=== PATIENT | male | born 1955 | race Caucasian/White ===

== ENCOUNTER 2019-03-28 17:52 | Outpatient (REF) | payer BC, SELFPAY ==
[2019-03-28 21:58] LABS: C-Reactive Protein 0.15 mg/dL (0.0-0.3)
[2019-03-28 23:02] LABS: ESR 4 MM/HR (1-20)
[2019-03-30 10:58] LABS: Lyme Ab w Rflx to Lyme Confirm Negative
== END 2019-03-28 18:12 ==
LOC: NCHCN 17:52
PROVIDERS: PCP Physician Assistant Medical; Visit Provider Nurse Practitioner Family
DX: M25.50 Pain in unspecified joint (principal)
CPT/HCPCS: 85652; 86140; 86618

== ENCOUNTER 2019-06-28 20:02 | Outpatient (REF) | payer BC, SELFPAY ==
[2019-06-28 20:42] LABS: Uric Acid 4.5 mg/dL (3.5-7.2)
== END 2019-06-28 20:22 ==
LOC: NCHCN 20:02
PROVIDERS: PCP Physician Assistant Medical; Visit Provider Nurse Practitioner Family
DX: M25.562 Pain in left knee (principal)
CPT/HCPCS: 84550

== ENCOUNTER 2020-04-24 08:57 | Outpatient (REF) | payer SELFPAY ==
[2020-04-24 20:45] LABS: Anion Gap 12.2 mmol/L (3-11); BUN 11 mg/dL (7-18); CO2 25.8 mmol/L (21.0-32.0); CREATININE 0.98 mg/dL (0.70-1.30); Calcium 9.3 mg/dL (8.5-10.1); Calculated LDL 143 mg/dL (<100); Chloride 100 mmol/L (98-107); Cholesterol 224 mg/dL (<200); Glucose 108 mg/dL (74-106); HDL Cholesterol 46 mg/dL (40-60); Potassium 4.6 mmol/L (3.5-5.1); Sodium 138 mmol/L (136-145); Triglyceride 176 mg/dL (<150)
== END 2020-04-24 09:17 ==
LOC: NCHCN 08:57
PROVIDERS: PCP Nurse Practitioner Family; Visit Provider Nurse Practitioner Family
DX: K21.9 Gastro-esophageal reflux disease without esophagitis (principal); Z13.1 Encounter for screening for diabetes mellitus; Z13.220 Encounter for screening for lipoid disorders
CPT/HCPCS: 80048; 80061

== ENCOUNTER 2020-06-17 11:12 | Day surgery (SDC) | payer OTHER, SELFPAY ==
--- NOTE | 2020-06-17 07:04 | W.COLOREPORT ---
Date of service: 06/17/20 Time of Service: 12:24 Colonoscopy Report Date of procedure: 06/17/20 Pre-op diagnosis general: Hx of polyps Post-op diagnosis procedure note: same (polyps and hernández-diverticulosis) Procedure: Colonoscopy with polypectomy Surgeon: Marcelle Elizabeth Anesthesia proc note operative: other (General/ ASA 2/yanni Rea, CHRISTIANNE) Estimated blood loss (mL): 3 Pathology: other (Rectal polyps) Complications: None Disposition: same day Indications: The patient is here for Colonoscopy pre-op. His last screening was in 2014 and was Tubular adenoma. He has no family history of colon cancer. He has not had any bowel habit changes. -Discussed colonoscopy bowel prep as well as the procedure. Discussed possible complications of the procedure to include bleeding, pain, perforation, missed small lesion/polyp, sore throat, aspiration and adverse reaction to the medications. Questions were answered to patient?s satisfaction. No guarantees were implied or given. Prep: Miralax/Dulcolax Procedure Start Time: 12:24 Procedure End Time: 12:56 Retraction Time: 17 minutes Findings: 2 small polyps Severe hernández-diverticulosis Procedure Description: After informed consent was obtained the patient was taken to the procedure room and placed in a left decubitous position. Monitors were applied and a time out was done. The patients name, date of , procedure, allergies to medications and metal in their body was reviewed. The patient was then sedated. Once sedated and comfortable a rectal exam was done. External exam was normal. Internal exam revealed a normal sphincter tone and no palpable masses. The prostate felt smooth. The scope was then introduced and retro-flexed. No internal hemorrhoids were identified. The scope was then advanced to the cecum with some difficulty due to severe diverticulosis of the entire large bowel. The ileocecal valve and appendiceal orifice were identified. The prep was adequate. The scope was then slowly retracted over 12 minutes back into the rectum. Polyps were removed with cold forceps in the rectum. There was severe hernández-diverticulosis. The scope was removed and the patient was woken up and taken back to Same day surgery in stable condition. The patient tolerated the procedure well and there were no immediate complications. Follow up: The patient should follow up in 5 years unless they develop changes in bowel habits or other new gastrointestinal complaints.
--- NOTE | 2020-06-17 07:05 | W.PM.DSUDISC ---
Discharge Plan Disposition Patient Disposition: HOME Condition: Good Discharge Details Reason For Visit: Hx of polyps Attending Provider: Marcelle Elizabeth Primary Care Provider: Carolyn Broussard Home Meds and New Rx's Prescriptions: Continued Fish Oil 1 EACH capsule 1,000 mg PO DAILY RF: 0 psyllium husk (bulk) 1 GM powder 1 gm Miscellaneous DAILY RF: 0 Discontinued polyethylene glycol 3350 17 gram/dose powder 238 g PO ONCE Qty: 238 RF: 0 bisacodyl [Dulcolax (bisacodyl)] 5 mg tablet,delayed release (DR/EC) 5 mg PO ONCE Qty: 4 RF: 0 Discharge Instructions Instructions: Diverticulosis (DC) Additional Instructions: Findings: Severe Diverticulosis and 2 small polyps Follow up: 5 years Please call if you develop: fevers >101.5 Nausea or Vomiting Abdominal pain that is not transient DAY SURGERY UNIT POST ENDOSCOPY INSTRUCTIONS 1. Because there will be medication in your system for the next 24 hours, you may feel a little sleepy. Your coordination will be affected. Therefore: a. Do not drive or operate dangerous equipment for 24 hours. b. Do not drink alcohol beverages for 24 hours (not even beer). c. Plan to go home and rest for the day. 2. Generally there are no restrictions on your activity after a day or so has gone by, but you may feel a bit fatigued for a few days. 3 After you arrive home you may have a light meal and return to a normal diet as you can tolerate it without feeling sick to your stomach. 4. After surgery, you may feel pain or discomfort. This should be only transient, but if it persists please contact your doctor. 5. If there are any questions regarding the findings of your procedure, please feel free to contact your doctor. 6. If you are unable to contact your doctor with a problem, contact the hospital at [phone]. 7. Continue all your regular medications unless directed otherwise. I understand the above instructions and have no questions. Signature of Patient or Responsible Adult Escort Date/Time Name of Responsible Adult Escort Signature of Nurse Date/Timen Activity:: Activity as Tolerated Diet:: High Fiber diet Discharge Orders Discharge Orders: Discharge Order (Routine); Ordered 06/17/20 Ordered By: Marcelle Elizabeth
[2020-06-17 11:15] VITALS: BP 148/89; PULSE 85; RESP 18; TEMP 35.9; O2SAT 95
[2020-06-17] MEDS: Lactated Ringers 1,000 ML 80 ML IV (11:45)
--- NOTE | 2020-06-17 12:28 | BOWEL_PTH ---
PATIENT: Vladimir Flores LOC: [facility] U#:[id number] AGE/SX: 64/M ROOM: RE06/17/[address]: Marcelle Elizabeth MD : 1955 BED: DIS: 06/17/2020 SPEC #: [id number] RECD: 06/17/20 14:08 STATUS: MARISSA REQ #: [id number] NICHOLE: 06/17/20 12:[address]: Marcelle Elizabeth DEPT: Surgical Specimen RECD BY: Nicole Lincoln ENTERED: 06/17/20 14:11 SP TYPE: Bowel OTHR DR: Carolyn Broussard Tissues: 1 - BIOPSY BOWEL Procedures: GROSS AND MICRO LEVEL 4 Comments: [id number]
[2020-06-17] MEDS: Ondansetron 4 MG/2 ML VIAL (13:15)
[2020-06-17 13:45] VITALS: BP 142/79; PULSE 72; RESP 17; TEMP 36.1; O2SAT 97
[2020-06-17] MEDS: Hyoscyamine 0.125 MG SL/ORAL/CHEW (14:01)
== END 2020-06-17 14:43 | disposition home or self-care (01) ==
LOC: SUR 11:12
PROVIDERS: PCP Nurse Practitioner Family; Visit Provider Surgery
PROC: 0DJD8ZZ Inspection of Lower Intestinal Tract, Via Natural or Artificial Opening Endoscopic (ICD-10-PCS; CPT 45378; principal; 2020-06-17 11:15)
DX: Z12.11 Encounter for screening for malignant neoplasm of colon (principal); Z86.010 Personal history of colon polyps; K62.1 Rectal polyp; K57.30 Diverticulosis of large intestine without perforation or abscess without bleeding
CPT/HCPCS: 45380; 88305; J2001; J2405; J3490

== ENCOUNTER 2021-03-26 08:47 | Outpatient (REF) | payer OTHER, SELFPAY ==
[2021-03-26 13:59] LABS: Calculated LDL 123 mg/dL (<100); Cholesterol 201 mg/dL (<200); Glucose 102 mg/dL (74-106); HDL Cholesterol 41 mg/dL (40-60); Triglyceride 185 mg/dL (<150)
== END 2021-03-26 08:48 | disposition home or self-care (01) ==
LOC: NCHCN 08:47
PROVIDERS: PCP Nurse Practitioner Family; Visit Provider Nurse Practitioner Family
DX: R73.9 Hyperglycemia, unspecified (principal); E78.5 Hyperlipidemia, unspecified
CPT/HCPCS: 80061; 82947

== ENCOUNTER 2022-01-13 14:34 | Outpatient (REF) | payer OTHER, SELFPAY ==
[2022-01-13 14:08] LABS: Calculated LDL 100 mg/dL (<100); Cholesterol 184 mg/dL (<200); HDL Cholesterol 42 mg/dL (40-60); Triglyceride 212 mg/dL (<150)
== END 2022-01-13 14:35 | disposition home or self-care (01) ==
LOC: NCHCN 14:34
PROVIDERS: PCP Nurse Practitioner Family; Visit Provider Nurse Practitioner Family
DX: E78.5 Hyperlipidemia, unspecified (principal)
CPT/HCPCS: 80061

== ENCOUNTER 2022-02-10 18:42 | Outpatient (REF) | payer OTHER, SELFPAY | END 2022-02-10 18:43 | disposition home or self-care (01) | LOC: NCHCN 18:42 | PROVIDERS: PCP Nurse Practitioner Family; Visit Provider Nurse Practitioner Family | DX: R35.0 Frequency of micturition (principal) | CPT/HCPCS: 87086 ==

== ENCOUNTER 2022-12-01 15:44 | Outpatient (REF) | payer MEDICARE, SELFPAY ==
[2022-12-01 16:19] LABS: Hemoglobin A1C 5.5 % (<5.7)
[2022-12-01 16:22] LABS: Anion Gap 8.9 mmol/L (3-11); BUN 12 mg/dL (7-18); CO2 27.1 mmol/L (21.0-32.0); CREATININE 0.9 mg/dL (0.70-1.30); Calcium 9.4 mg/dL (8.5-10.1); Calculated LDL 143 mg/dL (<100); Chloride 101 mmol/L (98-107); Cholesterol 219 mg/dL (<200); Estimated GFR 94.78 (mL/min/1.73m2); Glucose 112 mg/dL (74-106); HDL Cholesterol 54 mg/dL (40-60); Potassium 4.6 mmol/L (3.5-5.1); Sodium 137 mmol/L (136-145); TSH (W/Ref FT4) 1.66 uIU/mL (0.36-3.74); Triglyceride 114 mg/dL (<150)
[2022-12-10 11:01] LABS: Testosterone, Free 11.1 ng/dL (3.47-13.0); Testosterone, Total 569 ng/dL (240-950)
== END 2022-12-01 15:45 | disposition home or self-care (01) ==
LOC: NCHCN 15:44
PROVIDERS: PCP Nurse Practitioner Family; Visit Provider Nurse Practitioner Family
DX: F52.21 Male erectile disorder (principal); E78.5 Hyperlipidemia, unspecified; R73.9 Hyperglycemia, unspecified
CPT/HCPCS: 80048; 80061; 84402; 84403; 83036; 84443

== ENCOUNTER 2023-02-15 12:27 | Outpatient (REF) | payer MEDICARE, SELFPAY ==
[2023-02-15 17:29] LABS: ALT 49 U/L (16-63); AST 35 U/L (15-37); Cholesterol 171 mg/dL (<200); HDL Cholesterol 42 mg/dL (40-60); Triglyceride 409 mg/dL (<150)
[2023-02-15 18:49] LABS: LDL CHOLESTEROL 77 mg/dL (<100)
[2023-02-15 20:07] LABS: Creatine Kinase 321 U/L (39-308)
== END 2023-02-15 12:28 | disposition home or self-care (01) ==
LOC: NCHCN 12:27
PROVIDERS: PCP Nurse Practitioner Family; Visit Provider Nurse Practitioner Family
DX: E78.5 Hyperlipidemia, unspecified (principal); F52.21 Male erectile disorder
CPT/HCPCS: 80061; 82550; 83721; 84450; 84460

== ENCOUNTER 2023-04-29 09:30 | Outpatient (REF) | payer MEDICARE, SELFPAY ==
[2023-04-29 16:40] LABS: ALT 57 U/L (16-63); AST 36 U/L (15-37); Calculated LDL 86 mg/dL (<100); Cholesterol 153 mg/dL (<200); HDL Cholesterol 49 mg/dL (40-60); Triglyceride 92 mg/dL (<150)
[2023-04-29 17:28] LABS: Creatine Kinase 160 U/L (39-308)
== END 2023-04-29 09:31 | disposition home or self-care (01) ==
LOC: NCHCN 09:30
PROVIDERS: PCP Nurse Practitioner Family; Visit Provider Nurse Practitioner Family
DX: E78.5 Hyperlipidemia, unspecified (principal)
CPT/HCPCS: 80061; 82550; 84450; 84460

== ENCOUNTER 2025-02-02 22:20 | Outpatient (REF) | payer MEDICARE, SELFPAY ==
[2025-02-02 19:13] LABS: ALT 56 U/L (16-63); AST 40 U/L (15-37); Albumin 4.1 g/dL (3.4-5.0); Alkaline Phosphatase 99 U/L (46-116); Anion Gap 9.6 mmol/L (3-11); BUN 15 mg/dL (7-18); Bilirubin, Total 0.4 mg/dL (0.2-1.0); CO2 25.4 mmol/L (21.0-32.0); CREATININE 1.1 mg/dL (0.70-1.30); Calcium 9.3 mg/dL (8.5-10.1); Chloride 104 mmol/L (98-107); Estimated GFR 73.58 (mL/min/1.73m2); Glucose 125 mg/dL (74-106); Potassium 4.3 mmol/L (3.5-5.1); Sodium 139 mmol/L (136-145); Total Protein 7.6 g/dL (6.4-8.2)
== END 2025-02-02 22:21 | disposition home or self-care (01) ==
LOC: NCHCN 22:20
PROVIDERS: PCP Nurse Practitioner Family; Visit Provider Nurse Practitioner Family
DX: E78.5 Hyperlipidemia, unspecified (principal)
CPT/HCPCS: 80053

== ENCOUNTER 2025-03-16 01:50 | Emergency (ER) | payer MEDICARE, SELFPAY ==
[2025-03-16] VITALS (14 sets, daily range): BP systolic 136–159; BP diastolic 82–99; PULSE 79–98; RESP 15–22; TEMP 36.3; O2SAT 94–98
--- NOTE | 2025-03-16 01:57 | ED.GENADUL_ITS ---
Discharge Plan Disposition Patient Disposition: Home Condition: Good Discharge Details Clinical Impression: Nausea, vomiting and diarrhea Primary Care Provider: Carolyn Broussard ED Provider: Glenn Bynum Meds and New Rx's Prescriptions: New ondansetron 4 mg tablet,disintegrating 4 mg PO Q8H PRNQty: 10 0RF Continued rosuvastatin [Crestor] 5 mg tablet 5 mg PO DAILY omega 2-ave-wdp-fish oil [Fish Oil] 300-1,000 mg capsule 1 cap PO DAILY indomethacin 50 mg capsule 50 mg PO TID Rx Instructions: administer with food or milk Fish Oil 1 EACH capsule 1,000 mg PO DAILY psyllium husk (bulk) 1 GM powder 1 gm Miscellaneous DAILY Held amoxicillin-pot clavulanate 875-125 mg tablet 1 tab PO BID Hold Instructions: Discuss with PCP Discharge Instructions Instructions: Nausea and Vomiting, Adult ED Additional Instructions: You were seen in the ED for vomiting and diarrhea. As we discussed, is very difficult for me to decide whether this is related to the Augmentin versus you developing gastroenteritis and the Augmentin is coincidental. For now I r ecommend holding the Augmentin. You may use the ondansetron provided (prescription has also been sent to pharmacy). It would be most important to stay hydrated. If you are going to eat start with a bland diet as we discussed. Touch base with your primary care regarding restarting the Augmentin. It may be worth trying pseudoephedrine and Flonase for your sinus symptoms. Return to ED for any persistent vomiting, high fever, development of abdominal pain, bloody diarrhea, other concerns. Referrals: Carolyn Broussard [Primary Care Provider] - [facility] General Mode of arrival: ambulatory . Date/Time Provider Initiated Documentation: 03/16/25 01:53 . Limitations to Documentation: no limitations . Information obtained by: patient, RN notes reviewed and old records reviewed . HPI Narrative: Patient presents to ED after developing vomiting and diarrhea earlier in the afternoon. Patient was seen by primary care for URI and sinus problems, started on Augmentin. Took his first dose around noon time. Had onset of vomiting and diarrhea 3 to 4 hours later. He has had persistent vomiting and diarrhea since then. He is not completely sure whether he has been on Augmentin previously. However, he has no prior history of allergic or adverse reaction to meds. Denies any fever. Denies any chest pain or abdominal pain. Has not had any bloody emesis or bloody diarrhea. Related Data Home Medications ?Medication ?Instructions ?Recorded ?Confirmed omega-3 fatty acids-fish oil 340 1,000 mg PO DAILY 12/13/14 03/16/25 mg-1,000 mg capsule (Fish Oil) psyllium husk (bulk) 100 % powder 1 gm miscellaneous DAILY 12/13/14 03/16/25 indomethacin 50 mg capsule 50 mg PO TID 03/08/25 03/16/25 omega 5-cvv-fqo-fish oil 300 1 cap PO DAILY 03/08/25 03/16/25 mg-1,000 mg capsule (Fish Oil) rosuvastatin 5 mg tablet (Crestor) 5 mg PO DAILY 03/08/25 03/16/25 amoxicillin 875 mg-potassium 1 tab PO BID 03/16/25 03/16/25 clavulanate 125 mg tablet ondansetron 4 mg disintegrating 4 mg PO Q8H PRN #10 tabs 03/16/25 tablet Previous Rx's ?Medication ?Instructions ?Recorded ondansetron 4 mg disintegrating 4 mg PO Q8H PRN #10 tabs 03/16/25 tablet Allergies Allergy/AdvReac Type Severity Reaction Status Date / Time No Known Allergies Allergy Verified 03/16/25 02:01 Exam Narrative Exam Narrative: Const: WDWN male in NAD. VS per triage. HEENT: NC/AT. Normal facial exam. Neck: Supple. Trachea midline. Lungs: Normal respiratory effort. Lungs are clear. Cor: RRR without murmur. Good radial pulses. GI: Soft/ND/NT. Neuro: A+O x 3. Normal speech, mentation, gait. Cranial nerves II - XII grossly intact. No gross motor or sensory deficit. Ext: No C/C/E. Medical Decision Making Patient presenting to ED with complaint of vomiting and diarrhea. Patient took his first dose of Augmentin for sinus infection around noon. Began to have vomiting and diarrhea 3 to 4 hours later. Has been unable to keep anything down and has been having significant amount of watery diarrhea since then. Has not had any type of abdominal pain. Denies any bloody emesis or diarrhea. Difficult to parse out whether this is adverse reaction to the Augmentin versus possible gastroenteritis. Seems like a relatively sudden onset within hours of taking the Augmentin. While GI symptoms are clearly a side effect of antibiotics typically not that acute within hours of first dose. In any event short-term management will include IV fluids and ondansetron as well as check of abdominal laboratory studies. Patient's laboratory studies overall unremarkable. White count slightly up to 12.7. Liver function, kidney function normal. Electrolytes normal other than sodium being just slightly low at 135. Patient feeling much improved after Zofran and fluids. Discussed at length trying to determine whether Augmentin versus gastroenteritis with the cause of his symptoms. Also discussed that most sinusitis is are not bacterial in nature. Recommend holding off on further Augmentin for the next day or 2 until GI system recovered and back to normal. Will provide ondansetron for recurrent nausea vomiting. He should touch base with his primary care who had initially prescribed the Augmentin. Return precautions provided. Medical Records Medical records reviewed: Yes I reviewed the patient's medical records. Medical records narrative: PCP notes in [facility] Lab Data Lab results reviewed: Yes I reviewed the patient's lab results. Lab results narrative: see [facility] All Active Problems (Updated 03/16/25 @ 03:19 by Glenn Bynum MD) Nausea, vomiting and diarrhea (Acute) Hyperplastic colon polyp (Acute) Laryngopharyngeal reflux (LPR) (Chronic) Medical History History of colon polyps Hyperglycemia Diverticula of intestine Somatoform disorder Erectile dysfunction Anxiety Gout Hyperlipidemia History of head injury Tubular adenoma of colon Actinic keratosis Nightmares Globus sensation GERD (gastroesophageal reflux disease) Colon polyp Diverticulosis Surgical History History of appendectomy Colonoscopy - IV Sedation (~01/16/15) tubular adenoma Social History Smoking/Tobacco Use Status: Never Smoking risk assessment performed?: Yes Alcohol Intake: current Alcohol Intake frequency: 3 or more drinks per day Alcohol type: beer Drug use: Occasionally Substance use type: marijuana Do you feel safe at home: Yes Do you feel safe in your relationship?: Yes
[2025-03-16] MEDS: Normal Saline 1,000 ML 1000 ML IV (02:27)
[2025-03-16] MEDS: Ondansetron 4 MG/2 ML VIAL IVP (02:28)
[2025-03-16 02:30] LABS: Abs Immature Grans 0.08 10^3/uL (0.0-0.06); Absolute Basophil Count 0.03 10^3/uL (0.0-0.2); Absolute Lymphocyte Count 0.55 10^3/uL (1.2-3.4); Absolute Monocyte Count 1.21 10^3/uL (0.1-0.8); Basophils % 0.2 %; Eosinophils % 0.8 %; HCT 47.4 % (40.0-50.0); HGB 16.7 g/dL (13.5-17.5); Immature Grans % 0.6 %; Lymphocytes % 4.3 %; MCH 31.9 pg (27.0-33.0); MCHC 35.2 % (32.0-36.0); MCV 91 fL (80-95); MPV 8.7 fL (8.0-11.0); Monocytes % 9.5 %; Neutrophils % 84.6 %; Platelet Count 263 10^3/uL (130-400); RBC 5.23 10^6/uL (4.36-5.78); RDW 11.2 % (11.8-14.1); RDW-SD 37.4 fL; WBC 12.71 10^3/uL (4.4-10.8)
[2025-03-16 02:32] LABS: Absolute Neutrophil Count 10.75 10^3/uL (1.2-6.7)
[2025-03-16 02:44] LABS: ALT 59 U/L (16-63); AST 37 U/L (15-37); Albumin 4.1 g/dL (3.4-5.0); Alkaline Phosphatase 93 U/L (46-116); Anion Gap 8.7 mmol/L (3-11); BUN 18 mg/dL (7-18); Bilirubin, Total 0.9 mg/dL (0.2-1.0); CO2 27.3 mmol/L (21.0-32.0); CREATININE 1.1 mg/dL (0.70-1.30); Calcium 9.4 mg/dL (8.5-10.1); Chloride 99 mmol/L (98-107); Estimated GFR 73.58 (mL/min/1.73m2); Glucose 155 mg/dL (74-106); Potassium 4.2 mmol/L (3.5-5.1); Sodium 135 mmol/L (136-145); Total Protein 7.8 g/dL (6.4-8.2)
[2025-03-16] MEDS: Ondansetron O.D.T. 4 MG TABEF, 3 TABS/BTL PO (03:25)
== END 2025-03-16 03:32 | disposition home or self-care (01) ==
PROVIDERS: Emergency Provider Emergency Medicine; PCP Nurse Practitioner Family
DX: R11.2 Nausea with vomiting, unspecified (principal); R19.7 Diarrhea, unspecified; E78.5 Hyperlipidemia, unspecified
CPT/HCPCS: 80053; 96361; 96374; 99284; 83735; 85025; J2405

== ENCOUNTER → 2025-06-07 07:55 | Outpatient (BNVA) | payer MEDICARE, SELFPAY | PROVIDERS: PCP Nurse Practitioner Family; Referring Provider Nurse Practitioner Family; Visit Provider Physical Therapy Assistant | DX: Z12.11 Encounter for screening for malignant neoplasm of colon (principal); Z86.0101 Personal history of adenomatous and serrated colon polyps | CPT/HCPCS: S0285 ==

== ENCOUNTER 2025-06-21 08:55 | Day surgery (SDC) | payer MEDICARE, SELFPAY ==
[2025-06-21 09:46] VITALS: BP 134/93; PULSE 97; RESP 18; TEMP 36; O2SAT 99
[2025-06-21] MEDS: Lactated Ringers 1,000 ML 80 ML IV (10:12)
--- NOTE | 2025-06-21 11:00 | W.PM.DSUDISC ---
Date of service: 06/21/25 Discharge Plan Disposition Patient Disposition: Home Condition: Stable Discharge Details Attending Provider: Malu Chauhan Primary Care Provider: Carolyn Broussard Home Meds and New Rx's Prescriptions: Continued rosuvastatin [Crestor] 5 mg tablet 5 mg PO DAILY Fish Oil 1 EACH capsule 1,000 mg PO DAILY psyllium husk (bulk) 1 GM powder 1 gm Miscellaneous DAILY Discontinued bisacodyl [Dulcolax (bisacodyl)] 5 mg tablet,delayed release (DR/EC) 5 mg PO ONCE Qty: 4 0RF Rx Instructions: Take per colonoscopy instructions provided by ordering providers office polyethylene glycol 3350 17 gram/dose powder 17 g PO ONCE Qty: 238 0RF Rx Instructions: Take per colonoscopy instructions provided by ordering providers office Discharge Instructions Additional Instructions: one tiny polyp of rectum seen and removed. Timing of next colonoscopy depends on the biopsy of this polyp. If this is a hyperplastic polyp, you dont need another colonoscopy for 10 years. If it is an adenoma polyp, you need another colonoscopy in 5 years. Diverticulosis of the colon is extensive. A fiber supplement is recommended to help you avoid diverticulitis. Stand Alone Forms: Anesthesia Discharge Inst., Colonoscopy Post Instructions, Marge Sun (DSU) Activity:: Activity as Tolerated Diet:: As Tolerated Discharge Orders Discharge Orders: Discharge Order (Routine); Ordered 06/21/25 Ordered By: Malu Chauhan DS: Diagnosis Discharge Diagnosis (1) Rectal polyp: Status: Acute (2) Encounter for colonoscopy due to history of colonic polyp: Status: Acute (3) Pancolonic diverticulosis: Status: Acute
--- NOTE | 2025-06-21 11:55 | W.COLOREPORT ---
Date of service: 06/21/25 Time of Service: 12:32 Colonoscopy Report Date of procedure: 06/21/25 Pre-op diagnosis general: Hx of polyps Post-op diagnosis procedure note: same (rectum polyp and hernández-diverticulosis) Procedure: Colonoscopy with polypectomy Surgeon: Malu Chauhan Anesthesia Type: General:No Airway Estimated blood loss (mL): 1 Pathology: other (rectum polyp) Complications: None Disposition: same day Prep: Miralax/Dulcolax (Good) Procedure Description: Informed consent was obtained and the patient was taken to the procedure area. The patient was placed in left lateral decubitus position on the procedure table. Timeout was performed. Anesthesia was induced. A lubricated colonoscope was inserted through the anus and passed to the cecum. The cecum was identified by the ileocecal valve and the appendiceal orifice. The scope was then slowly withdrawn and the colonic and rectal mucosa examined. Pancolonic diverticulosis is noted. rectum with 3mm sessile polyp seen and excised with cold forceps. The scope was retroflexed in the anorectal junction examined. Uncomplicated internal hemorrhoids present. Assessment and plan; Rectum polyp pancolonic diverticulosis History of hyperplastic polyp 5 years ago. If todays rectum polyp is hyperplastic, he can return to regular screening pool and complete next colonoscopy in 10 years. If polyp is adenomatous, next colonoscopy will be due in 5 years. Fiber supplement recommended for diverticulosis.
--- NOTE | 2025-06-21 11:58 | W.ANESPRE ---
General Info Date of Service Date Performed: 06/21/25 Height: 5 ft 10.5 in Weight: 85.3 kg Body Mass Index (BMI): 26.6 Surgical Procedure: Operation Date: 06/21/25 10:50 Proposed Procedure Side Surgeon p Colonoscopy Malu Chauhan MD Meds Allergies and Home Medications Allergies Allergy/AdvReac Type Severity Reaction Status Date / Time No Known Allergies Allergy Verified 06/21/25 09:42 Home Medication ?Medication ?Instructions ?Recorded omega-3 fatty acids-fish oil 340 1,000 mg PO DAILY 12/13/14 mg-1,000 mg capsule (Fish Oil) psyllium husk (bulk) 100 % powder 1 gm miscellaneous DAILY 12/13/14 rosuvastatin 5 mg tablet (Crestor) 5 mg PO DAILY 03/08/25 Current Visit Medications: Current Medications Generic Name Dose Route Start Last Admin Trade Name Freq PRN Reason Stop Dose Admin Ringer's Solution 1,000 mls @ 80 mls/hr 06/21/25 06:00 06/21/25 10:12 IV 06/21/25 23:59 80 mls/hr INFUSION AYLIN Administration IV Miscellaneous Supplies 1 each 06/21/25 06:00 Iv Access IV 06/21/25 23:59 DIRECTED AYLIN Sodium Biphosphate/Sodium Phosphate 133 - 266 ml 06/20/25 14:21 Na Phosphate Enema-Adult 133 Ml Btl GA 07/20/25 14:20 PRN PRN Sodium Chloride 0 ml 06/21/25 06:00 Normal Saline Flush 10 Ml Syr IV 06/21/25 23:59 PRN PRN Sodium Chloride 0 ml 06/21/25 06:00 Normal Saline 10 Ml Vial IJ 06/21/25 23:59 DIRECTED PRN Sterile Water 0 ml 06/21/25 06:00 Water,Injection,Sterile 10 Ml Vial IJ 06/21/25 23:59 DIRECTED PRN PFSH Active Problems Active Problems: Problem Status Onset Code Hyperplastic colon polyp Acute K63.5 Laryngopharyngeal reflux (LPR) Chronic K21.9 Medical History Medical History History of colon polyps Hyperglycemia Diverticula of intestine Somatoform disorder Erectile dysfunction Anxiety Gout Hyperlipidemia History of head injury Tubular adenoma of colon Actinic keratosis Nightmares Globus sensation GERD (gastroesophageal reflux disease) Colon polyp Diverticulosis Surgical History Surgical History History of appendectomy Colonoscopy - IV Sedation (~01/16/15) tubular adenoma Tobacco Smoking/Tobacco Use Status: Never Alcohol Alcohol Intake: current Alcohol intake frequency: 3 or more drinks per day Alcohol type: beer Substance Use Substance use: Daily Substance use type: marijuana Details: alcohol: t-4, couple. Marijuana: t-4, joint or two Vital Signs and Lab Results Vital Signs Most Recent Vital Signs in EMR: Most Recent Vital Signs Temp Pulse Resp BP Pulse Ox 36.0 C L 97 H 18 134/93 H 99 06/21/25 09:46 06/21/25 09:46 06/21/25 09:46 06/21/25 09:46 06/21/25 09:46 Anesthesia Assessment and Plan Anesthesia History Personal History: No History of Anesthesia Complications Family History: No Family History of Anesthesia Complications Exercise Tolerance Exercise Tolerance: Metabolic Equivalents>4 Pertinent Negatives Pertinent Negatives: No Symptoms of GERD Cardiac & Pulmonary Exam Cardiac Exam: Normal S1/S2 Heart Sounds Pulmonary Exam: Clear Bilateral Breath Sounds Implantable Cardiac Device Does patient have a Pacemaker or an ICD?: No Airway Exam Known Difficult Airway: No Mallampati Class: 2 Mouth Opening: Normal (> 3cm) Thyromental Distance: Greater than 3 cm Neck Range of Motion: Full ROM Neck Circumference: Normal Teeth Condition: Normal Dentition ASA Classification ASA Score: ASA 2 Emergency Case?: No NPO Status NPO Status: NPO Clears >2 hours, Solids >8 hours Anesthesia Plan Resuscitation Status: Full Code Anesthesia Technique: General Anesthesia Airway Planned: Natural Airway Monitors Used: Standard Monitors
[2025-06-21 11:59] VITALS: BMI 26.6
--- NOTE | 2025-06-21 12:25 | BOWEL_PTH ---
PATIENT: Vladimir Flores LOC: [facility] U#:[id number] AGE/SX: 69/M ROOM: RE06/21/[address]: Malu Chauhan MD : 1955 BED: DIS: 06/21/2025 SPEC #: [id number] RECD: 06/21/25 15:56 STATUS: MARISSA REPedro #: [id number] NICHOLE: 06/21/25 12:[address]: Malu Chauhan DEPT: Surgical Specimen RECD BY: Carolynn Pimentel ENTERED: 06/21/25 15:56 SP TYPE: Bowel OTHR DR: Carolyn Broussard Tissues: 1 - BIOPSY BOWEL Procedures: GROSS AND MICRO LEVEL 4 Comments: [id number]
[2025-06-21 12:40] VITALS: BP 105/75; PULSE 109; RESP 16; TEMP 36.3; O2SAT 94
--- NOTE | 2025-06-21 13:02 | W.ANESPOSTOP ---
Postoperative Evaluation Date, Time and Location Date Performed: 06/21/25 Time Performed: 13:02 Patient Location: Day Surgery Unit Vital Signs Most Recent Imported Vital Signs: Most Recent Vital Signs Temp Pulse Resp BP Pulse Ox 36.3 C L 109 H 16 105/75 94 06/21/25 12:40 06/21/25 12:40 06/21/25 12:40 06/21/25 12:40 06/21/25 12:40 Pain Score Most Recent Pain Score: Most Recent Pain Score Pain Level 0 06/21/25 12:40 Assessment Mental Status: Awake (Alert & Oriented to Patient Baseline) Airway and Respiratory Function: Patent airway with normal (patient baseline) respiratory exam Cardiovascular Function: Hemodynamically Stable Hydration Status: Adequately Hydrated Nausea & Vomiting: No Nausea or Vomiting Pain: Pt. Denies Any Pain Peripheral Nerve Block: Patient did not receive a nerve block
[2025-06-21 13:16] VITALS: BP 152/92; PULSE 88; RESP 17; TEMP 36.4; O2SAT 98
== END 2025-06-21 13:19 | disposition home or self-care (01) ==
LOC: SUR 08:55
PROVIDERS: PCP Nurse Practitioner Family; Visit Provider Surgery
PROC: 0DJD8ZZ Inspection of Lower Intestinal Tract, Via Natural or Artificial Opening Endoscopic (ICD-10-PCS; CPT 45378; principal; 2025-06-21 10:45)
DX: Z12.11 Encounter for screening for malignant neoplasm of colon (principal); K62.1 Rectal polyp; K57.30 Diverticulosis of large intestine without perforation or abscess without bleeding; Z86.0100 Personal history of colon polyps, unspecified
CPT/HCPCS: 45380; 88305; J2003; J2704